=== PATIENT | male | born 1955 | race Caucasian/White ===

== ENCOUNTER 2019-01-27 01:45 | Outpatient (CLI) | payer MEDICARE, MEDICAID, SELFPAY ==
[2019-01-27 08:55] LABS: Abs Immature Grans 0.03 k/cumm (0.0-0.09); Absolute Basophil Count 0.07 k/cumm (0.0-0.2); Absolute Eosinophil Count 0.51 k/cumm (0.0-0.7); Absolute Lymphocyte Count 2.76 k/cumm (1.2-3.4); Absolute Neutrophil Count 6.06 k/cumm (1.2-6.7); Basophils % 0.7; Eosinophils % 5.1; HCT 44.8 % (40.0-50.0); HGB 14.8 g/dL (13.5-17.5); Immature Grans % 0.3; Lymphocytes % 27.5; Mean Corpuscular Hemoglobin 29.1 pg (27.0-33.0); Mean Platelet Volume 9.6 fL (8.0-11.0); Neutrophils % 60.4; Platelet Count 253 x1000/uL (130-400); RBC 5.09 m/cumm (4.50-6.00); White Blood Cell Count 10.03 k/cumm (4.4-10.8)
[2019-01-27 09:48] LABS: COMMENT (LAB VIEW ONLY) 113.06 mg/dL; Microalb ug/mg Crea 3.6 ug/mg Cr
[2019-01-27 09:50] LABS: Hemoglobin A1C 9.2 % (4.5-6.2)
[2019-01-27 09:55] LABS: ALT 58 U/L (12-78); AST 23 U/L (15-37); Albumin 3.3 g/dL (3.4-5.0); Alkaline Phosphatase 85 U/L (46-116); Anion Gap 9.2 mmol/L (3-11); BUN 17 mg/dL (7-18); Bilirubin, Total 0.3 mg/dL (0.2-1.0); CO2 29.8 mmol/L (21.0-32.0); CREATININE 0.98 mg/dL (0.70-1.30); Calcium 9.3 mg/dL (8.5-10.1); Chloride 100 mmol/L (98-107); Cholesterol 176 mg/dL (50-200); Glucose 184 mg/dL (70-100); HDL Cholesterol 33 mg/dL (40-60); LDL CHOLESTEROL 115 mg/dL (<100); Potassium 4.6 mmol/L (3.5-5.1); Sodium 139 mmol/L (136-145); Total Protein 7.5 g/dL (6.4-8.2); Triglyceride 227 mg/dL (30-150)
== END 2019-01-27 02:05 ==
PROVIDERS: PCP Family Medicine; Visit Provider Physician Assistant
DX: E11.65 Type 2 diabetes mellitus with hyperglycemia (principal); E78.5 Hyperlipidemia, unspecified; I10 Essential (primary) hypertension; E66.01 Morbid (severe) obesity due to excess calories
CPT/HCPCS: 36415; 80053; 80061; 83721; 82043; 82570; 83036; 85025

== ENCOUNTER 2019-02-01 10:39 | Emergency (ER) | payer MEDICARE, MEDICAID, SELFPAY ==
[2019-02-01] VITALS (56 sets, daily range): BP systolic 136–193; BP diastolic 78–135; PULSE 95–132; RESP 1–37; TEMP 36.5; O2SAT 89–98
[2019-02-01 11:19] LABS: BE (Venous) 4.9 mmol/L (-3-3); HCO3 (Venous) 29 mmol/L (22-28); O2 Sat (Venous) 69 % (70-80); TCO2 (Venous) 26 mmol/L (22-29); pCO2 (Venous) 45 mm/Hg (34-47); pH (Venous) 7.42 (7.32-7.43); pO2 (Venous) 36 mm/Hg (28-44)
[2019-02-01 11:23] LABS: Abs Immature Grans 0.05 k/cumm (0.0-0.09); Absolute Basophil Count 0.06 k/cumm (0.0-0.2); Basophils % 0.4; Eosinophils % 2.7; HCT 45.8 % (40.0-50.0); HGB 15.4 g/dL (13.5-17.5); Immature Grans % 0.3; Lymphocytes % 15.7; Mean Corp. HGB Concentration 33.6 g/dL (32.0-36.0); Mean Corpuscular Hemoglobin 29.2 pg (27.0-33.0); Mean Corpuscular Volume 86.9 fL (80-95); Mean Platelet Volume 9.6 fL (8.0-11.0); Monocytes % 6.6; Neutrophils % 74.3; Platelet Count 227 x1000/uL (130-400); RBC 5.27 m/cumm (4.50-6.00); RBC Distribution Width 12.9 % (11.8-14.1); White Blood Cell Count 16.02 k/cumm (4.4-10.8)
--- NOTE | 2019-02-01 11:23 | ED.GENADUL_ITS ---
Discharge Plan Disposition Patient Disposition: [facility] Condition: Stable Discharge Details Chief Complaint: RespSymp Clinical Impression: Chest pain Primary Care Provider: Ad Johnston ED Provider: Damon Johnson Home Meds and New Rx's Prescriptions: No Action Lantus U-100 Insulin 100 UNIT/1 ML solution 45 units Sub-Q HS RF: 0 methadone 40 MG tablet,soluble 10 mg PO QID RF: 0 trazodone 150 MG tablet 150 mg PO DAILY RF: 0 Novolog PenFill U-100 Insulin 100 UNIT/ML cartridge SQ .SLIDING SCALE RF: 0 hydroxyzine pamoate [Vistaril] 25 MG capsule 25 mg PO PRN PRNRF: 0 Medical Decision Making This is a 63-year-old male with a past medical history of diabetes, obesity, distant tobacco abuse, family history of cardiac disease who presents with 3 complaints is a sore throat that started yesterday, exam demonstrates a benign appearing throat with minimal cobblestoning the posterior oropharynx most likely secondary to mild upper respiratory infection causing postnasal drip. The chest pain shortness of breath are slightly more concerning though he is chest pain that started yesterday, central in nature which she describes as tight it occurred at rest which was atypical for his normal chest pain. Worse with exertion and associated with a green productive cough. He also has bilateral radiation to his arms which is been present for the last few months, worsened with activity. Improved with rest. Concerning for cardiac versus respiratory etiology. With no severe tearing sensation, being hemodynamically stable I doubt ACS at this current time as his chronic history sounds more like stable angina however this acute episode started last night while at rest is certainly more concerning for unstable angina. With his tachycardia PE is on the differential. We will get a d-dimer, perform a cardiac workup, breathing treatments to alleviate his wheezes they do feel there is certainly a reactive airway component. Rehydrate and reassess. 5:11 PM Patient's white count is slightly elevated at 16 but he is afebrile and has no complaints of fever, or urinary symptoms. CT scan is negative for any evidence of acute thoracic pneumonia component. No evidence of infectious etiology per the virtual radiologist. D-dimer was elevated and a CT angios showed no evidence of pulmonary embolism or aortic dissection. There was evidence of atherosclerotic disease of the coronary vessels as well as COPD. Electrolytes and renal function were stable. Serial troponins were each less than 0.02. ProBNP was normal. Patient had mild subjective improvement of his symptoms with the breathing treatment, but notable improvement of his lung sounds with the breathing treatment, so because of this we did give him a second treatment here in the ED, of a DuoNeb solution. During this episode patient's heart rate went up to 120 at which point he developed notable worsening central chest pain. EKG was performed at that time which did show new and acute changes of [address] depression in the lateral leads of V5 and V6 with less than 1 mm depression in V4. Patient's heart rate came down on its own over the next 15-20 minutes and his chest pain notably improved. With these notably acute EKG changes, and with the patient's history concerning for stable angina with the acute change last night of unstable angina I feel that his symptomatology certainly requires furth er cardiac evaluation, stress testing versus cardiac catheterization. I did contact [facility] and discussed the case with Dr. Jacobsen the fellow for cardiology, she agreed with the plan. She did recommend 300 mg of Plavix in addition to the aspirin that had already been given. She did not recommend any heparinization at this time. Patient will be transferred to [facility] under Dr. amado for cardio. While here the patient did have a brief repeat episode of Chest Pain We Did Place Nitropaste which notably improved his symptoms. Do feel that the patient demonstrates signs and symptoms concerning for unstable angina and should be transferred immediately for further evaluation to [facility], for which cardiology agrees with the current plan. I have extensively reviewed the treatment plan and discharge instructions with the patient. I have addressed all patient concerns at this time. The patient was made aware of what symptoms to monitor for that would warrant a return to the emergency department. Discussed the plan with the patient, they demonstrate verbal understanding and agreement with our assessment and plan at this time. Vision EKG 11: 32 Rate 99, intervals normal, sinus rhythm, minimal questionable T wave inversion in V5 and V6 which does appear to be new compared to EKG in 2012, however there is no evidence of significant ST elevations or depressions, no STEMI, no evidence of a Wellen syndrome, WPW, or Brugada. Small Q wave in lead III. EKG 13: 51 Rate 92, intervals normal, sinus rhythm, inverted T waves in V5 and V6, no significant ST elevations or depressions. No evidence of STEMI. AVL is also inverted. EKG 14: 22 Rate 115, intervals normal, sinus tachycardia, nonspecific ST depressions in the 4 5 and 6. 1 mm of depression in V5 and V6. No evidence of ST elevation. These ST depressions are an acute change. Of note the patient also is currently IN PAIN FINDINGS: Limitations: Motion throughout the exam limits detail. Pulmonary arteries: Unremarkable. No pulmonary emboli. Aorta: Aorta is normal caliber with no dissection. Mild scattered wall calcifications. There is a normal-variant aberrant right subclavian artery with calcifications at its origin, but no significant stenosis. Lungs: Mild paraseptal and centrilobular emphysema. Dependent atelectasis. No suspicious infiltrate. No consolidation. Pleural space: Unremarkable. No pneumothorax. No pleural effusion. Heart: Heart is normal in size. Coronary artery calcifications. No pericardial effusion. Prominent pericardial fat pad. Liver: Enlarged fatty infiltrated liver. Lymph nodes: Unremarkable. No enlarged lymph nodes. Bones/joints: Unremarkable. No acute fracture. Soft tissues: Unremarkable. IMPRESSION: 1. Negative for pulmonary embolism, aortic aneurysm or dissection. 2. COPD. 3. Coronary artery disease. Dictated and Authenticated by: Kristy Bernabe MD. Ordering:REINA Jose MD HPI General Date/Time Provider Initiated Documentation: 02/01/19 10:56 . HPI Narrative: This is a 63-year-old male with a past medical history of chronic lumbar back pain on methadone, type 2 diabetes, tonsillectomy, penile implant, who presents today for evaluation of sore throat, chest pain, and respiratory symptoms. Patient states that sore throat and chest pain started yesterday, as well as an exertional shortness of breath that has been going on for the last few months. In regards to the sore throat he describes it as a aching-like sensation in his posterior oropharynx. He denies any difficulty swallowing, dysphagia, fever, neck pain, or headache. He describes a burning component as well. He also describes mild central chest pain that began yesterday, began while at rest, he describes it as a mild tightness in the feeling of a small loaf of bread on his chest. He has had no associated cough with productive green sputum. He also admits to exertional component of the symptoms that is been present for the last 1-2 months. It causes bilateral arm pain and achiness whenever he has activity, it is relieved with rest. There is no radiation into the neck, he denies any tearing sensation in his chest. He has done occasional breathing treatment but states that this does not help. Does admit to an old history of tobacco abuse in the past. He does admit to family history of cardiac disease. Patient denies any recent stress test, previous history of MA, or other cardiac history. Patient denies any other complaints at this time. No other modifying factors. He denies any hemoptysis, long trips, recent surgeries or procedures, history of blood clots, calf tenderness, or weight gain. Related Data Home Medications Medication Instructions Recorded Confirmed insulin glargine [Lantus] 45 units SUB-Q HS 11/11/13 02/01/19 methadone 10 mg PO QID tab-cap 11/11/13 02/01/19 trazodone 150 mg PO DAILY tab-cap 11/11/13 02/25/16 insulin aspart U-100 [Novolog] unit SQ .SLIDING SCALE 11/19/13 09/12/15 hydroxyzine pamoate [Vistaril] 25 mg PO PRN PRN 09/12/15 02/01/19 Allergies Allergy/AdvReac Type Severity Reaction Status Date / Time Penicillins Allergy Unknown Unverified 02/01/19 10:48 General Stated Complaint: RespSymp JANESSA: 4 Review of Systems Review of Systems All systems reviewed & are unremarkable except as noted in HPI and below PFSH Social History Smoking/Tobacco Use Status: Former Tobacco Use Alcohol Intake: never Drug use: Never Do you feel safe at home: Yes Do you feel safe in your relationship?: Yes Exam Narrative Exam Narrative: 1.Const: Well-nourished, Well-developed, appearing stated age 2.Eyes: PERRL, no conjunctival injection, and symmetrical lids. 3.ENT: Atraumatic external nose and ears. Moist MM. Neck: Symmetric, trachea midline, No thyromegaly. No tonsils, no significant erythema in the posterior oropharynx. Minimal cobblestoning in the posterior oropharynx. Mild tenderness on percussion of the frontal and maxillary sinuses. No evidence of airway compromise, angioedema, he is able to tolerate all his secretions very well. 4.CVS: +S1/S2, No murmurs or gallops. Peripheral pulses 2+ and equal in all extremities. Brisk capillary refill in all extremities. Radial pulses +2 bilaterally 5.RESP: Unlabored respiratory effort. Mild wheezes throughout, minimal crackle in the base. 6.GI: Soft, Nontender/Nondistended, No hepatosplenomegaly. No guarding or rebound. 7.MSK: Normocephalic/Atraumatic, Extremities w/o deformity or ttp No cyanosis or clubbing, Normal movement of all extremities. No calf tenderness. 8.Skin: Warm, Dry. No rashes or lesions. 9.Neuro: hardwood floor refinisher II-XII grossly intact. Sensation grossly intact, no focal neurologic deficits. 10.Psych: (AAO) x3. Appropriate mood and affect Course Vital Signs Temperature 36.5 C 02/01/19 10:43 Pulse 113 H 02/01/19 10:43 Respiratory Rate 16 02/01/19 10:43 Blood Pressure 190/110 H 02/01/19 10:43 Pulse Oximetry 95 02/01/19 10:43 Temperature 36.5 C 02/01/19 10:43 Temperature Source Temporal Artery Scan 02/01/19 10:43 Pulse 113 H 02/01/19 10:43 Respiratory Rate 16 02/01/19 10:43 Respiratory Effort 02/01/19 10:47 Respiratory Depth Shallow 02/01/19 10:47 Blood Pressure 190/110 H 02/01/19 10:43 Blood Pressure Position Sitting 02/01/19 10:43 Pulse Oximetry 95 02/01/19 10:43 Oxygen Delivery Method Room Air 02/01/19 10:43 Oxygen Flow Rate 0 02/01/19 10:43 Pain Level 0 02/01/19 10:43
[2019-02-01 11:26] LABS: Absolute Eosinophil Count 0.43 k/cumm (0.0-0.7); Absolute Lymphocyte Count 2.52 k/cumm (1.2-3.4); Absolute Monocyte Count 1.06 k/cumm (0.11-0.7)
[2019-02-01] MEDS: methylPREDNISolone SUCC 125 MG VIAL IVP (11:31)
[2019-02-01] MEDS: Normal Saline 1,000 ML 1000 ML IV (11:32)
[2019-02-01] MEDS: Albuterol/Ipratropium 3 ML UPD VIAL UPD (11:33)
[2019-02-01 11:34] LABS: PTT Activated 22.5 sec (21.0-31.4); Prothrombin Time 9.6 sec (9.3-11.0)
[2019-02-01 11:48] LABS: ALT 54 U/L (12-78); AST 23 U/L (15-37); Albumin 3.4 g/dL (3.4-5.0); Alkaline Phosphatase 89 U/L (46-116); Anion Gap 7.9 mmol/L (3-11); BUN 12 mg/dL (7-18); Bilirubin, Total 0.3 mg/dL (0.2-1.0); CO2 29.1 mmol/L (21.0-32.0); CREATININE 0.99 mg/dL (0.70-1.30); Calcium 9.1 mg/dL (8.5-10.1); Chloride 99 mmol/L (98-107); Glucose 227 mg/dL (70-100); NT-proBNP 25 pg/mL; Sodium 136 mmol/L (136-145); Total Protein 8.1 g/dL (6.4-8.2)
[2019-02-01 11:50] LABS: D-Dimer 756 ng/mlFEU (<500)
[2019-02-01 11:53] LABS: Troponin I < 0.02 ng/mL (0.00-0.06)
--- NOTE | 2019-02-01 11:53 | DI.CT_ITS ---
SYMPTOM/DIAGNOSIS: CP, SOB, ELEVATED DIMER, R/O PE CTA CHEST: 02/01/19 CT angiography of the chest was performed with intravenous infusion of 100 cc Omnipaque 350. Images obtained through the upper abdomen show unremarkable appearance of visualized portions of the spleen, pancreas, adrenals and kidneys. There is apparent decreased hepatic attenuation consistent with hepatic steatosis. No pleural effusion seen. No mediastinal or hilar adenopathy seen. Thoracic aorta is of normal diameter. Aberrant left sided origin of right subclavian artery which passes behind the trachea and esophagus. Tracheobronchial tree appears intact. Lungs are grossly clear. No evidence of pulmonary embolic disease. CONCLUSION: No evidence of pulmonary embolic disease.
[2019-02-01] MEDS: Omnipaque 350 MG/ML 100 ML BTL IJ (12:18)
[2019-02-01] MEDS: Normal Saline Flush 10 ML SYR IVP (12:25)
--- NOTE | 2019-02-01 13:35 | DI.VRAD_ITS ---
EXAM: CT Angiography Chest With Contrast EXAM DATE/TIME: 02/01/2019 11:54 AM CLINICAL HISTORY: 63 years old, male; Pain; Chest pain; Other: Cp SOB elevated dimer R/O pe TECHNIQUE: Imaging protocol: Axial computed tomographic angiography images of the chest with intravenous contrast using CT angiography protocol. Coronal and sagittal reformatted images were created and reviewed. 3D rendering: MIP reconstructed images were created and reviewed. Contrast material: omni 350 Contrast volume: 100 ml Contrast route: IV COMPARISON: CR CHEST 2 VIEWS PA,LAT 02/25/2016 10:38 AM FINDINGS: Limitations: Motion throughout the exam limits detail. Pulmonary arteries: Unremarkable. No pulmonary emboli. Aorta: Aorta is normal caliber with no dissection. Mild scattered wall calcifications. There is a normal-variant aberrant right subclavian artery with calcifications at its origin, but no significant stenosis. Lungs: Mild paraseptal and centrilobular emphysema. Dependent atelectasis. No suspicious infiltrate. No consolidation. Pleural space: Unremarkable. No pneumothorax. No pleural effusion. Heart: Heart is normal in size. Coronary artery calcifications. No pericardial effusion. Prominent pericardial fat pad. Liver: Enlarged fatty infiltrated liver. Lymph nodes: Unremarkable. No enlarged lymph nodes. Bones/joints: Unremarkable. No acute fracture. Soft tissues: Unremarkable. IMPRESSION: 1. Negative for pulmonary embolism, aortic aneurysm or dissection. 2. COPD. 3. Coronary artery disease. Dictated and Authenticated by: Kristy Bernabe MD. Ordering:REINA Jose MD
[2019-02-01] MEDS: Albuterol/Ipratropium 3 ML UPD VIAL (13:55)
[2019-02-01 14:10] LABS: Troponin I < 0.02 ng/mL (0.00-0.06)
[2019-02-01] MEDS: Clopidogrel 300 MG TAB PO (15:41)
[2019-02-01] MEDS: Aspirin 81 MG CHEW 324 MG CH (15:41)
== END 2019-02-01 17:30 | disposition short-term general hospital (02) ==
PROVIDERS: Emergency Provider Student in an Organized Health Care Education/Training Program; PCP Internal Medicine
DX: R07.9 Chest pain, unspecified (principal); I25.10 Atherosclerotic heart disease of native coronary artery without angina pectoris; J02.9 Acute pharyngitis, unspecified; E11.9 Type 2 diabetes mellitus without complications; Z79.4 Long term (current) use of insulin
CPT/HCPCS: 36415; 71275; 80053; 82805; 94640; 96361; 96374; 99285; 83880; 84484; 85025; 85379; 85610; 85730; 99284; J2930; J3490; J7620

== ENCOUNTER 2019-05-01 08:40 | Outpatient (CLI) | payer MEDICARE, MEDICAID, SELFPAY ==
[2019-05-01 09:25] LABS: Abs Immature Grans 0.04 k/cumm (0.0-0.09); Absolute Basophil Count 0.07 k/cumm (0.0-0.2); Absolute Eosinophil Count 0.56 k/cumm (0.0-0.7); Absolute Lymphocyte Count 2.93 k/cumm (1.2-3.4); Absolute Monocyte Count 0.91 k/cumm (0.11-0.7); Absolute Neutrophil Count 7.68 k/cumm (1.2-6.7); Basophils % 0.6; Eosinophils % 4.6; HCT 45.2 % (40.0-50.0); Immature Grans % 0.3; Mean Corp. HGB Concentration 33.2 g/dL (32.0-36.0); Mean Corpuscular Hemoglobin 29.2 pg (27.0-33.0); Mean Corpuscular Volume 87.9 fL (80-95); Mean Platelet Volume 9.3 fL (8.0-11.0); Monocytes % 7.5; Platelet Count 282 x1000/uL (130-400); RBC 5.14 m/cumm (4.50-6.00); RBC Distribution Width 13.5 % (11.8-14.1); White Blood Cell Count 12.19 k/cumm (4.4-10.8)
[2019-05-01 09:32] LABS: Hemoglobin A1C 8.1 % (4.5-6.2)
[2019-05-01 09:49] LABS: ALT 42 U/L (12-78); AST 21 U/L (15-37); Albumin 3.5 g/dL (3.4-5.0); Alkaline Phosphatase 98 U/L (46-116); BUN 13 mg/dL (7-18); Bilirubin, Total 0.2 mg/dL (0.2-1.0); CREATININE 0.95 mg/dL (0.70-1.30); Calcium 9.1 mg/dL (8.5-10.1); Calculated LDL 49 mg/dL; Chloride 105 mmol/L (98-107); Cholesterol 105 mg/dL (50-200); Glucose 107 mg/dL (70-100); HDL Cholesterol 34 mg/dL (40-60); Potassium 4.4 mmol/L (3.5-5.1); Sodium 142 mmol/L (136-145); Total Protein 7.4 g/dL (6.4-8.2); Triglyceride 112 mg/dL (30-150)
== END 2019-05-01 09:00 ==
PROVIDERS: PCP Internal Medicine; Visit Provider Internal Medicine
DX: I10 Essential (primary) hypertension (principal); E78.2 Mixed hyperlipidemia; E03.9 Hypothyroidism, unspecified; E11.65 Type 2 diabetes mellitus with hyperglycemia; F52.21 Male erectile disorder; E66.01 Morbid (severe) obesity due to excess calories
CPT/HCPCS: 36415; 80053; 80061; 83721; 83036; 85025

== ENCOUNTER → 2019-08-11 13:47 | Outpatient (BNVA) | payer MEDICARE, MEDICAID, SELFPAY | PROVIDERS: PCP Internal Medicine; Referring Provider Physician Assistant; Visit Provider Psychiatry & Neurology Neurology | DX: I65.09 Occlusion and stenosis of unspecified vertebral artery (principal); H81.10 Benign paroxysmal vertigo, unspecified ear; I95.1 Orthostatic hypotension; J44.9 Chronic obstructive pulmonary disease, unspecified; E11.9 Type 2 diabetes mellitus without complications; Z79.4 Long term (current) use of insulin | CPT/HCPCS: 99205 ==

== ENCOUNTER 2019-09-10 03:16 | Outpatient (CLI) | payer MEDICARE, MEDICAID, SELFPAY ==
[2019-09-10 10:02] LABS: Hemoglobin A1C 7.3 % (4.5-6.2)
[2019-09-10 10:49] LABS: ALT 30 U/L (16-63); AST 12 U/L (15-37); Albumin 3.3 g/dL (3.4-5.0); Alkaline Phosphatase 88 U/L (46-116); Anion Gap 6.6 mmol/L (3-11); BUN 17 mg/dL (7-18); Bilirubin, Total 0.2 mg/dL (0.2-1.0); CO2 29.4 mmol/L (21.0-32.0); Calculated LDL 81 mg/dL; Chloride 102 mmol/L (98-107); Cholesterol 145 mg/dL (<200); Glucose 135 mg/dL (74-106); HDL Cholesterol 31 mg/dL (40-60); Potassium 4.9 mmol/L (3.5-5.1); Sodium 138 mmol/L (136-145); Total Protein 7.1 g/dL (6.4-8.2); Triglyceride 166 mg/dL (<150)
[2019-09-10 11:12] LABS: Abs Immature Grans 0.03 k/cumm (0.0-0.09); Absolute Basophil Count 0.08 k/cumm (0.0-0.2); Absolute Eosinophil Count 0.55 k/cumm (0.0-0.7); Absolute Lymphocyte Count 2.57 k/cumm (1.2-3.4); Absolute Monocyte Count 0.64 k/cumm (0.11-0.7); Absolute Neutrophil Count 5.51 k/cumm (1.2-6.7); Basophils % 0.9; Eosinophils % 5.9; HCT 44.9 % (40.0-50.0); HGB 14.6 g/dL (13.5-17.5); Immature Grans % 0.3; Lymphocytes % 27.4; Mean Corp. HGB Concentration 32.5 g/dL (32.0-36.0); Mean Corpuscular Hemoglobin 28.9 pg (27.0-33.0); Mean Corpuscular Volume 88.7 fL (80-95); Mean Platelet Volume 9.3 fL (8.0-11.0); Monocytes % 6.8; Neutrophils % 58.7; Platelet Count 290 x1000/uL (130-400); RBC 5.06 m/cumm (4.50-6.00); RBC Distribution Width 13.5 % (11.8-14.1); White Blood Cell Count 9.38 k/cumm (4.4-10.8)
== END 2019-09-10 03:36 ==
PROVIDERS: PCP Internal Medicine; Visit Provider Physician Assistant
DX: I10 Essential (primary) hypertension (principal); E11.65 Type 2 diabetes mellitus with hyperglycemia; D72.828 Other elevated white blood cell count; J44.9 Chronic obstructive pulmonary disease, unspecified; J44.1 Chronic obstructive pulmonary disease with (acute) exacerbation; T83.490D Other mechanical complication of implanted penile prosthesis, subsequent encounter
CPT/HCPCS: 36415; 80053; 80061; 83036; 85025

== ENCOUNTER → 2019-12-04 10:55 | Outpatient (BNVA) | payer MEDICARE, SELFPAY | PROVIDERS: PCP Physician Assistant; Referring Provider Physician Assistant; Visit Provider Physical Therapy Assistant | DX: R19.5 Other fecal abnormalities (principal); E11.9 Type 2 diabetes mellitus without complications; Z79.4 Long term (current) use of insulin; J44.9 Chronic obstructive pulmonary disease, unspecified; Z87.891 Personal history of nicotine dependence | CPT/HCPCS: 99213 ==

== ENCOUNTER 2019-12-17 09:53 | Day surgery (SDC) | payer MEDICARE, SELFPAY ==
[2019-12-17 10:19] VITALS: BP 131/89; PULSE 85; RESP 16; TEMP 36.5; O2SAT 95
[2019-12-17] MEDS: Lactated Ringers 1,000 ML 80 ML IV (10:52)
--- NOTE | 2019-12-17 11:24 | W.PM.DSUDISC ---
Discharge Plan Discharge Details Attending Provider: Monica Persaud Primary Care Provider: Rosalba Ngo Home Meds and New Rx's Prescriptions: No Action Lantus U-100 Insulin 100 UNIT/1 ML solution 60 units Sub-Q HS RF: 0 trazodone 150 MG tablet 150 mg PO DAILY RF: 0 omeprazole 40 mg capsule,delayed release(DR/EC) 40 mg PO DAILY RF: 0 nitroglycerin [Nitrostat] 0.4 mg tablet, sublingual 0.4 mg SL Q5M PRNRF: 0 ibuprofen 800 mg tablet 800 mg PO Q8H RF: 0 methadone 10 mg tablet 10 mg PO Q6H RF: 0 insulin aspart U-100 [Novolog PenFill U-100 Insulin] 100 UNIT/ML cartridge SQ .SLIDING SCALE RF: 0 aspirin 81 mg Tablet,Chewable 81 mg PO PRN PRNRF: 0
--- NOTE | 2019-12-17 11:25 | W.COLOREPORT ---
Date of service: 12/17/19 Time of Service: 11:25 Colonoscopy Report Date of procedure: 12/17/19 Pre-op diagnosis general: + Cologuard Post-op diagnosis procedure note: other Procedure: ce Surgeon: Monica Persaud Anesthesia proc note operative: GETA Estimated blood loss (mL): 0 Pathology: other Complications: None Disposition: same day Retraction Time: 15 mins Procedure Description: After informed consent was obtained the patient was taken to the procedure room and placed in a left decubitous position. Monitors were applied and a time out was done. The patients name, date of , procedure, allergies to medications and metal in their body was reviewed. The patient was then sedated. Once sedated and comfortable a rectal exam was done. External exam was normal. Internal exam revealed a normal sphincter tone and no palpable masses. The prostate - not palpable. The scope was then introduced and retrofelexed. No internal hemorrhoids were identified. The scope was then advanced to the cecum w/out difficulty. The TI and appendiceal orifice were identified. The prep was not the best- but the colon was extensively washed, and visualization was adequate. . The scope was then slowly retracted over 15 minutes back into the rectum. Polyps were removed at 20cm/sigmoid w/ cold biter. The scope was removed and the patient was woken up and taken back to Same day surgery in stable condition. The patient tolerated the procedure well and there were no immediate complications. Follow up: The patient should follow up in 5-10 years-path pd, unless they develop changes in bowel habits or other new gastrointestinal complaints.
--- NOTE | 2019-12-17 11:50 | BOWEL_PTH ---
PATIENT: Kahlil Rolon LOC: [facility] U#:[id number] AGE/SX: 64/M ROOM: RE12/17/[address]: Monica Persaud : 1955 BED: DIS: 12/17/2019 SPEC #: [id number] RECD: 12/17/19 13:00 STATUS: JULES REQ #: [id number] KENDELL: 12/17/19 11:[address]: Monica Persaud DEPT: Surgical Specimen RECD BY: Loretta Mchugh ENTERED: 12/17/19 13:01 SP TYPE: Bowel OTHR DR: Rosalba Ngo Tissues: 1 - BIOPSY BOWEL Procedures: GROSS AND MICRO LEVEL 4 Comments: [id number]
[2019-12-17 12:24] VITALS: BP 134/83; PULSE 75; RESP 16; TEMP 36.4; O2SAT 95
--- NOTE | 2019-12-17 14:51 | W.PM.DSUDISC ---
Discharge Plan Disposition Patient Disposition: HOME Condition: Good Discharge Details Reason For Visit: colon scope Attending Provider: Monica Persaud Primary Care Provider: Rosalba Ngo Home Meds and New Rx's Prescriptions: No Action Lantus U-100 Insulin 100 UNIT/1 ML solution 60 units Sub-Q HS RF: 0 trazodone 150 MG tablet 150 mg PO DAILY RF: 0 omeprazole 40 mg capsule,delayed release(DR/EC) 40 mg PO DAILY RF: 0 nitroglycerin [Nitrostat] 0.4 mg tablet, sublingual 0.4 mg SL Q5M PRNRF: 0 ibuprofen 800 mg tablet 800 mg PO Q8H RF: 0 methadone 10 mg tablet 10 mg PO Q6H RF: 0 insulin aspart U-100 [Novolog PenFill U-100 Insulin] 100 UNIT/ML cartridge SQ .SLIDING SCALE RF: 0 aspirin 81 mg Tablet,Chewable 81 mg PO PRN PRNRF: 0 Discharge Instructions Additional Instructions: Findings: x1 small polyp Follow up: will send a letter w/ results in 2-3wks. no asa/nsaid's- 72 hrs Please call if you develop: fevers >101.5 Nausea or Vomiting Abdominal pain that is not transient DAY SURGERY UNIT POST COLONOSCOPY INSTRUCTIONS 1. Because there will be medication in your system for the next 24 hours, you may feel a little sleepy. Your coordination will be affected. Therefore: a. Do not drive or operate dangerous equipment for 24 hours. b. Do not drink alcohol beverages for 24 hours (not even beer). c. Plan to go home and rest for the day. 2. Generally there are no restrictions on your activity after a day or so has gone by, but you may feel a bit fatigued for a few days. 3 After you arrive home you may have a light meal and return to a normal diet as you can tolerate it without feeling sick to your stomach. 4. After surgery, you may feel pain or discomfort. This should be only transient, but if it persists please contact your doctor. 5. If there are any questions regarding the findings of your procedure, please feel free to contact your doctor. 6. If you are unable to contact your doctor with a problem, contact the hospital at [phone]. 7. Continue all your regular medications unless directed otherwise. I understand the above instructions and have no questions. Signature of Patient or Responsible Adult Escort Date/Time Name of Responsible Adult Escort Signature of Nurse Date/Time Stand Alone Forms: Colonoscopy Post Instructions, Angel Mccormack (DSU) Activity:: no lifting over 20#'s or strenuous activity x 24 hrs Diet:: sm lt meals x 24 hrs Discharge Orders Discharge Orders: Discharge Order (Routine); Ordered 12/17/19 Ordered By: Monica Persaud DS: Diagnosis Discharge Diagnosis (1) Positive colorectal cancer screening using Cologuard test: Status: Acute
== END 2019-12-17 13:00 | disposition home or self-care (01) ==
PROVIDERS: PCP Physician Assistant; Visit Provider Surgery
PROC: 0DJD8ZZ Inspection of Lower Intestinal Tract, Via Natural or Artificial Opening Endoscopic (ICD-10-PCS; CPT 45378; principal; 2019-12-17 10:45)
DX: R19.5 Other fecal abnormalities (principal); K63.5 Polyp of colon; K21.9 Gastro-esophageal reflux disease without esophagitis; E11.9 Type 2 diabetes mellitus without complications; Z79.4 Long term (current) use of insulin; J44.9 Chronic obstructive pulmonary disease, unspecified; I10 Essential (primary) hypertension
CPT/HCPCS: 45380; 88305; J2001

== ENCOUNTER 2020-05-16 07:40 | Outpatient (CLI) | payer MEDICARE, SELFPAY ==
[2020-05-18 03:06] LABS: COVID-19 RT-PCR Result NEGATIVE (Negative)
== END 2020-05-16 08:00 ==
PROVIDERS: PCP Physician Assistant; Visit Provider Urology
DX: Z03.818 Encounter for observation for suspected exposure to other biological agents ruled out (principal); N52.9 Male erectile dysfunction, unspecified
CPT/HCPCS: U0003

== ENCOUNTER → 2021-03-22 10:00 | Outpatient (BNVA) | payer MEDICARE, SELFPAY | PROVIDERS: PCP Physician Assistant; Referring Provider Internal Medicine; Visit Provider Psychiatry & Neurology Neurology | DX: R42 Dizziness and giddiness (principal); I65.09 Occlusion and stenosis of unspecified vertebral artery; I95.1 Orthostatic hypotension; E11.40 Type 2 diabetes mellitus with diabetic neuropathy, unspecified; R26.89 Other abnormalities of gait and mobility; M54.2 Cervicalgia | CPT/HCPCS: 99215; G2212 ==

== ENCOUNTER 2022-08-01 02:25 | Outpatient (CLI) | payer MEDICARE, SELFPAY | END 2022-08-01 02:26 | disposition home or self-care (01) | LOC: LBO 02:25 | PROVIDERS: PCP Physician Assistant; Visit Provider Urology | DX: N40.0 Benign prostatic hyperplasia without lower urinary tract symptoms (principal); N52.8 Other male erectile dysfunction; Z12.5 Encounter for screening for malignant neoplasm of prostate | CPT/HCPCS: 36415; 84154 ==

== ENCOUNTER 2023-02-18 11:15 | Outpatient (CLI) | payer MEDICARE, SELFPAY ==
--- NOTE | 2023-02-18 11:00 | DI.RAD_ITS ---
Exam(s) XR HIP PELVIS ADULT BL EXAM: XR HIP PELVIS ADULT BL CLINICAL HISTORY: bilat pain. TECHNIQUE: 2D digital imaging was performed of the pelvis and bilateral hips. Three images were obt ained. AP pelvis and lateral views of both hips were obtained. FINDINGS: BONES: No acute fracture is present. No bony destructive lesion is seen. JOINTS: No dislocation present. Mild degenerative changes are seen in the right hip characterized by joint space narrowing and acetabular spurring. There is mild acetabular spurring of the left hip. SOFT TISSUE: Normal. IMPRESSION: Mild degenerative changes of the hips, right greater than left. DATA REPOSITORY: RADIATION DOSE DELIVERED:
== END 2023-02-18 11:16 | disposition home or self-care (01) ==
LOC: DIORS 11:15
PROVIDERS: PCP Family Medicine; Referring Provider Family Medicine; Visit Provider Student in an Organized Health Care Education/Training Program
DX: M16.0 Bilateral primary osteoarthritis of hip (principal); M70.61 Trochanteric bursitis, right hip; E11.65 Type 2 diabetes mellitus with hyperglycemia; I25.2 Old myocardial infarction
CPT/HCPCS: 73521; 99213

== ENCOUNTER 2023-03-13 02:25 | Outpatient (CLI) | payer MEDICARE, SELFPAY ==
--- NOTE | 2023-03-13 07:41 | DI.MRI_ITS ---
Exam(s) MR LOWER JOINT BI WO EXAM: MR LOWER JOINT BI WO CLINICAL HISTORY: pain both hips, m70.61,m16.11,m16.12,primary oa,rt hip trochanteric bursi TECHNIQUE: Multiplanar multisequence MRI of the hip was performed. COMPARISON: No exams were available for comparison FINDINGS: MRI RIGHT HIP: MARROW:There is no evidence of fracture,. However, there is some signal abnormality in the subchondr al superior aspect of the right femoral head consistent with element of avascular necrosis. There is no loss of femoral head architecture. No prominent bone edema. No significant osseous lesions EFFUSION: There is no evidence of joint effusion. BURSAE: There is no evidence of trochanteric bursitis. There is no evidence of iliopsoas bursitis. HIP JOINT SPACE: No prominent chondral defects.There is no hypertrophy of the ligamentum teres nor si gnal abnormality at the fovea centralis. LABRUM: Some blunting of and increased signal within the substance of the anterior superior labrum. However, there is no invagination of fluid between the labrum and acetabulum. No subchondral cysts. No paralabral cyst at this level. TENDONS: There is some increased signal on T2 imaging within the gluteus medius and minimus tendons c onsistent with tendinopathy but no tear. Hamstrings common tendon unremarkable. ISCHIAL TUBEROSITY/HAMSTRING: There is no abnormal intraosseous signal in the ipsilateral ischial tub erosity nor tear of the common hamstrings tendon attachment site at this level. OTHER: Penile implant and reservoir noted in the right lower quadrant. MRI LEFT HIP: Marrow: No evidence of stress fracture nor avascular necrosis. No significant osseous lesions. Hip joint: Minimal degenerative changes. No prominent chondral defects. No hypertrophy of the ligam entum teres nor signal abnormality at the level the fovea central is. Labrum: There is some irregularity of the anterosuperior labrum with increased signal consistent with some degenerative tearing. Effusion: There is no evidence of left hip joint effusion. Bursae: No evidence of iliopsoas nor trochanteric bursitis. Tendons: No evidence of tendinitis nor tendon tears. Hamstrings: Intact common tendon. No tear this level IMPRESSION: 1. 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 Also gluteus medius and minimus te ndinopathy. There is also some degenerative change in the anterosuperior labrum of the right hip. N o prominent tear. No paralabral cyst 2. LEFT HIP exhibits no evidence of AVN. However, there is regularity of the anterosuperior labrum c onsistent with labral tearing at this level. There is no evidence of paralabral cyst. DATA REPOSITORY:
--- NOTE | 2023-03-13 17:40 | DI.VRAD_ITS ---
PROCEDURE INFORMATION: Exam: MR Right Lower Extremity Joint Without Contrast; Hip Exam date and time: 03/13/2023 1:13 PM Age: 67 years old Clinical indication: Other: Bilateral hip pain TECHNIQUE: Imaging protocol: Magnetic resonance imaging of the right lower extremity joint without contrast. Exam focused on the hip. COMPARISON: CR XR HIP PELVIS ADULT BL 02/18/2023 11:26 AM FINDINGS: Bones/joints: Slight subchondral sclerosis with a pattern suspicious for chronic avascular necrosis. Labrum: Minimal blunting of the anterosuperior acetabular labrum consistent with minimal degenerative change. TENDONS: Tendons of iliopsoas group: Unremarkable. No evidence of tear. Tendons of medial compartment of thigh: Unremarkable. No evidence of tear. Tendons of lateral rotators of hip: Unremarkable. No evidence of tear. Tendons of gluteal group: Increased T2 signal distal gluteus medius and minimus tendons consistent with tendinopathy. No tear identified. Soft tissues: Unremarkable. Other findings: Penile implant with reservoir right lower quadrant. IMPRESSION: 1. 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 Right gluteus medius and minimus tendinopathy 3. Minimal degenerative change anterior superior acetabular labrum PROCEDURE INFORMATION: Exam: MR Left Lower Extremity Joint Without Contrast; Hip Exam date and time: 03/13/2023 1:13 PM Age: 67 years old Clinical indication: Other: Bilateral hip pain TECHNIQUE: Imaging protocol: Magnetic resonance imaging of the left lower extremity joint without contrast. Exam focused on the hip. COMPARISON: CR XR HIP PELVIS ADULT BL 02/18/2023 11:26 AM FINDINGS: Bones/joints: Unremarkable. No bone abnormalities. Articular cartilage is normal. No joint effusion. Labrum: Slight irregularity of the anterosuperior acetabular labrum foci increased T2 signal consistent with degenerative type tearing. This is best seen on the sagittal series [id number], images 12 through 14. TENDONS: Tendons of iliopsoas group: Unremarkable. No evidence of tear. Tendons of medial compartment of thigh: Unremarkable. No evidence of tear. Tendons of lateral rotators of hip: Unremarkable. No evidence of tear. Tendons of gluteal group: Unremarkable. No evidence of tear. Soft tissues: Unremarkable. IMPRESSION: 1. Degenerative irregularity anterior superior acetabular labrum Dictated and Authenticated by: Shelbi Anderson MD. Ordering:ASHLEE Harris MD
== END 2023-03-13 02:45 ==
PROVIDERS: PCP Family Medicine; Visit Provider Student in an Organized Health Care Education/Training Program
DX: M25.859 Other specified joint disorders, unspecified hip
CPT/HCPCS: 73721

== ENCOUNTER → 2024-04-01 13:03 | Outpatient (BNVA) | payer MEDICARE, SELFPAY | PROVIDERS: PCP Family Medicine; Referring Provider Family Medicine; Visit Provider Podiatrist | DX: E11.40 Type 2 diabetes mellitus with diabetic neuropathy, unspecified (principal); I70.203 Unspecified atherosclerosis of native arteries of extremities, bilateral legs; L60.2 Onychogryphosis; L84 Corns and callosities; R09.89 Other specified symptoms and signs involving the circulatory and respiratory systems; L65.9 Nonscarring hair loss, unspecified; L60.3 Nail dystrophy; R23.8 Other skin changes; L60.8 Other nail disorders | CPT/HCPCS: 11719 ==